=== PATIENT | male | born 1960 | race Two or more races ===

== ENCOUNTER 2025-09-12 19:24 | Emergency (ER) | payer MEDICAID, SELFPAY ==
[2025-09-12 20:02] VITALS: BP 128/87; PULSE 92; RESP 19; TEMP 36.4; O2SAT 99
[2025-09-12 20:03] VITALS: BMI 39.4
--- NOTE | 2025-09-12 20:15 | PD.EDNV ---
Nausea/Vomit./Diarrhea-RME/HPI General Chief complaint: Nausea/Vomiting/Diarrhea Stated complaint: VOMITING Time Seen by Provider: 09/12/25 20:05 Arrival date/time: 09/12/25 19:24 65-year-old male patient with significant history of chronic schizophrenia, diabetes mellitus, was brought in by family for evaluation regarding nausea and vomiting and diarrhea has been ongoing for the last 2 days, patient cannot take anything down due to vomiting. Vomiting and diarrhea are nonbloody. Patient also is complaining of abdominal cramping. No fever no other complaints noted. Other sibling and the family are sick with vomiting. Related Data Home Medications ?Medication ?Instructions ?Recorded ?Confirmed albuterol sulfate 90 mcg/actuation 2 inh inhalation Q4H PRN Dyspnea 04/29/21 07/28/22 aerosol inhaler aripiprazole 30 mg tablet 30 mg PO QDAY 04/29/21 07/24/22 citalopram 40 mg tablet 40 mg PO QDAY 04/29/21 07/24/22 diclofenac sodium 1 % topical gel 1 g topical QID PRN Pain 04/29/21 07/28/22 fluticasone furoate 100 1 inh inhalation QDAY PRN 04/29/21 07/28/22 mcg/actuation blister powder for Shortness Of Breath Or Wheezing inhalation (Arnuity Ellipta) hydrocodone 10 mg-acetaminophen 1 tab PO Q8HR PRN Pain 04/29/21 07/28/22 325 mg tablet omeprazole 20 mg capsule,delayed 20 mg PO BID 04/29/21 07/28/22 release topiramate 50 mg tablet 50 mg PO BID 04/29/21 07/24/22 mupirocin calcium 2 % topical cream 1 applic topical PRN PRN Rash 07/25/22 07/28/22 triamcinolone acetonide 0.1 % 1 applic topical PRN PRN Rash 07/25/22 07/28/22 lotion Previous Rx's ?Medication ?Instructions ?Recorded blood sugar diagnostic (True #100 ea 07/29/22 Metrix Glucose Test Strip) flash glucose scanning reader #1 ea 07/29/22 (FreeStyle Dami[address]) flash glucose sensor (FreeStyle #1 ea 07/29/22 Damián 2 Sensor kit) glucagon 1 mg solution for 1 mg subcut Q20M PRN hypoglycemia 07/29/22 injection (Glucagon Emergency Kit) #1 ea lancets 28 gauge (TRUEplus Lancets) #100 ea 07/29/22 metformin 500 mg tablet 500 mg PO BIDWMEAL 1 month #60 tabs 07/29/22 pen needle, diabetic 29 gauge #100 ea 07/29/22 atorvastatin 80 mg tablet (Lipitor) 80 mg PO HS 30 days #30 tabs 07/30/22 blood-glucose meter (True Metrix #1 ea 08/07/22 Glucose Meter kit) flash glucose sensor (FreeStyle #1 ea 08/07/22 Damián 2 Sensor kit) famotidine 40 mg tablet (Pepcid) 40 mg PO BID #20 tabs 09/12/25 ondansetron HCl 4 mg tablet 4 mg PO Q8H PRN nausea and 09/12/25 vomiting 5 days #20 tabs Allergies Allergy/AdvReac Type Severity Reaction Status Date / Time No Known Allergies Allergy Verified 09/12/25 19:24 Review of Systems Review of Systems Narrative Review of Systems: Review of system reviewed and within normal limits except mentioned in HPI ED Exam Narrative Physical exam: VITAL SIGNS: Reviewed. GENERAL APPEARANCE: Alert and interactive, follows commands, no acute distress, HEAD AND FACE: Non-traumatic. ENT: PERRL, pink conjunctivitis, eyelid no trauma, Mucous membrane dry NECK: Supple, nontender, no nuchal rigidity. CHEST: No tenderness, no crepitus, no paradoxical movement, no retractions. LUNGS: Clear, well ventilated, symmetric, no rales, no wheezing, no ronchi, no stridor, good breath sounds bilaterally. HEART: Regular rate, regular rhythm, no murmur, no gallops. ABDOMEN: Soft, positive bowel sounds, nondistended, no guarding, nontender, no rebound, no masses, RECTAL: Deferred. GENITAL: Deferred. NEUROLOGICAL: Gross motor function intact sensory function intact, Appropriate for age. MUSCULOSKELETAL: low back nontender, full range of motion. EXTREMITIES: Nontender, full range of motion. SKIN: Color pink, dry, no rash, no lacerations, no abrasions, no contusions. LYMPHATICS: Deferred. Course Quality Measures none Orders Category Date Time Status Acetone [Beta Hydroxybutyrate] Stat Lab 09/12/25 20:26 Completed CBC [CBC] Stat Lab 09/12/25 20:26 Completed CMP [Comprehensive Metabolic Panel] Stat Lab 09/12/25 20:26 Completed Lactate (Lactic Acid) Stat Lab 09/12/25 20:26 Results Magnesium Stat Lab 09/12/25 20:26 Completed UA, C/S IF [Urinalysis, C/S if Indicated] Stat Lab 09/12/25 21:05 Completed VBG [Venous Blood Gas] Stat Lab 09/12/25 20:26 Completed Famotidine Inj [Pepcid Inj] Med 09/12/25 20:13 Discontinued 20 mg IVP X1 ONE Ondansetron Inj [Zofran Inj] Med 09/12/25 20:13 Discontinued 4 mg IVP X1 ONE Ringers Lactated 1000 ml [Lactated Ringers] 1,000 ml Med 09/12/25 20:14 Discontinued IV 999 mls/hr Vital Signs Vital signs: Vital Signs Temperature 97.6 F 09/12/25 20:02 Pulse Rate 92 09/12/25 20:02 Respiratory Rate 19 09/12/25 20:02 Blood Pressure 128/87 H 09/12/25 20:02 Pulse Oximetry (%) 99 09/12/25 20:02 Oxygen Delivery Method Room Air 09/12/25 20:02 Nausea/Vomiting/Diarrhea MDM Narrative MDM Narrative:: 65-year-old male patient with significant history of chronic schizophrenia, diabetes mellitus, was brought in by family for evaluation regarding nausea and vomiting and diarrhea has been ongoing for the last 2 days, patient cannot take anything down due to vomiting. Vomiting and diarrhea are nonbloody. Patient also is complaining of abdominal cramping. No fever no other complaints noted. Other sibling and the family are sick with vomiting. Patient's workup CBC did not show any leukocytosis. No anemia noted blood sugar of 207, lactic acid 2.5. Patient received 1 L of IV fluids. Was also given Pepcid IV, IV LR, Zofran, with no recurrence of vomiting. Patient is tolerating p.o. fluids. Patient is stable for charged home Patient data External records reviewed:: None Clinical information provided by:: patient and family Social determinants that could affect healthcare access:: none Patient has the following chronic illnesses:: Chronic schizophrenia hypertension How is presenting disease/condition affected by chronic disease/condition?: exacerbated by Evaluation data The following diagnostics were reviewed and interpreted by me:: lab results and radiology exam(s) Lab and/or radiology exams considered but not ordered:: None Interpretation Summary: See above Medications / Prescriptions Medications / Prescriptions considered but not ordered:: None Medication administrations:: Medication Administration History Discontinued Medications Famotidine (Famotidine Inj 10 Mg/Ml Vial 2 Ml) 20 mg IVP X1 ONE Stop: 09/12/25 20:14 Last Admin: 09/12/25 20:35 Dose: 20 mg Documented By: MONO Lactated Ringer's (Lactated Ringers) 1,000 mls @ 999 mls/hr IV .Q1H1M ONE Stop: 09/12/25 21:14 Last Infusion: 09/12/25 23:06 Dose: Infused Documented By: Admin: 09/12/25 20:34 Dose: 999 mls/hr Documented By: MONO Ondansetron HCl (Ondansetron Inj 2 Mg/Ml Inj 2 Ml) 4 mg IVP X1 ONE; Protocol Stop: 09/12/25 20:14 Last Admin: 09/12/25 20:35 Dose: 4 mg Documented By: MONO Pepcid, IV fluids Zofran Consultations Consultation(s) initiated? (list below): No Diagnosis Nausea Differential Diagnosis: traveler's diarrhea, food poisoning, gastroenteritis and dehydration Most likely diagnosis given after review of the tests above:: Gastroenteritis, dehydration Admission Indicated Admission indicated?: not indicated Admission Request Was there a request for admission?: No Disposition Plan Disposition Plan: Discharge Discharge Attestation Discharge Attestation: The patient and all family members were given an opportunity to ask questions and understood the discharge instructions. Discharge instructions specifically effects, indications for sooner follow up or return to the emergency department, and the expected course of current diagnosis. Patient condition: Stable Discharge Plan Plan Patient Disposition: HOME (Self Care) Discharge Disposition comment: Stable Prescriptions/Referrals Prescriptions/Med Rec: New ondansetron HCl 4 mg tablet 4 mg PO Q8H PRN (Reason: nausea and vomiting) 5 Days Qty: 20 0RF famotidine [Pepcid] 40 mg tablet 40 mg PO BID Qty: 20 0RF No Action citalopram 40 mg tablet 40 mg PO QDAY Patient Comments: take 1 tablet by mouth once daily hydrocodone-acetaminophen 10-325 mg tablet 1 tab PO Q8HR PRN (Reason: Pain) Patient Comments: take 1 tablet by mouth every 6 to 8 hours if needed ; NO DRIVING ... (REFER TO PRESCRIPTION NOTES). omeprazole 20 mg capsule,delayed release(DR/EC) 20 mg PO BID Patient Comments: take 1 capsule by mouth twice a day albuterol sulfate 90 mcg/actuation HFA aerosol inhaler 2 inh INHALATION Q4H PRN (Reason: Dyspnea) Patient Comments: inhale 1 to 2 puffs by mouth every 4 hours if needed aripiprazole 30 mg tablet 30 mg PO QDAY Patient Comments: take 1 tablet by mouth once daily topiramate 50 mg tablet 50 mg PO BID Patient Comments: take 1 capsule by mouth twice a day diclofenac sodium 1 % gel 1 g TOPICAL QID PRN (Reason: Pain) Patient Comments: apply 2 grams to affected area three times a day if needed Arnuity Ellipta 100 mcg/actuation blister with device 1 inh INHALATION QDAY PRN (Reason: Shortness Of Breath Or Wheezing) Patient Comments: inhale 1 puff by mouth and INTO THE LUNGS once daily mupirocin calcium 2 % cream 1 applic TOPICAL PRN PRN (Reason: Rash) triamcinolone acetonide 0.1 % lotion 1 applic TOPICAL PRN PRN (Reason: Rash) (DME) pen needle, diabetic 29 gauge needle See Rx Instructions .Route Qty: 100 0RF Rx Instructions: As directed (DME) True Metrix Glucose Test Strip Strip See Rx Instructions .Route Qty: 100 0RF Rx Instructions: As directed (DME) lancets [TRUEplus Lancets] 28 gauge misc See Rx Instructions .Route Qty: 100 0RF Rx Instructions: As directed (DME) FreeStyle [address] Misc See Rx Instructions .Route Qty: 1 0RF Rx Instructions: As directed (DME) FreeStyle Damián 2 Sensor Kit See Rx Instructions .Route Qty: 1 6RF Rx Instructions: As directed Glucagon Emergency Kit (human) 1 mg recon soln 1 mg subcut Q20M PRN (Reason: hypoglycemia) Qty: 1 0RF Rx Instructions: until target blood sugar attained metformin 500 mg tablet 500 mg PO BIDWMEAL 30 Days Qty: 60 2RF atorvastatin [Lipitor] 80 mg tablet 80 mg PO HS 30 Days Qty: 30 2RF (DME) blood-glucose meter [True Metrix Glucose Meter] Kit See Rx Instructions .Route Qty: 1 0RF Rx Instructions: As directed (DME) FreeStyle Damián 2 Sensor Kit See Rx Instructions .Route Qty: 1 3RF Rx Instructions: As directed Referrals: No Primary/Family,Physician [Primary Care Provider] - In 1 week Problem List Clinical Impression: Gastroenteritis, Dehydration Patient/Caregiver Discharge Instructions Discharge Activity: activity as tolerated Education Materials: Dehydration Additional Instructions: Thank you for the opportunity for serving you today. You are stable for discharged . You are advised to: Follow-up with your PCP in 1 to 2 days Return to ED for worsening of symptoms Increase oral fluids Take medication as prescribed Print Language: American Stand Alone Forms: [place] Award Info., Patient Portal Info Letter PA/DENTAL CERAMIST HELPER Supervising Physician PA/DENTAL CERAMIST HELPER Supervising Physician: mD Jaqueline
[2025-09-12] MEDS: RINGERS LACTATED 1000 ML 1,000 ML 999 ML IV (20:34)
[2025-09-12] MEDS: ONDANSETRON INJ 2 MG/ML INJ 2 ML 4 MG IVP (20:35)
[2025-09-12] MEDS: FAMOTIDINE INJ 10 MG/ML VIAL 2 ML 20 MG IVP (20:35)
[2025-09-12 20:44] LABS: Lactate (Lactic Acid) 2.5 mMol/L (0.4-2.0)
[2025-09-12 20:45] LABS: Base Excess, Venous -2 (-3-3); O2 Saturation, Venous 62 % (96-97); PCO2, Venous 42 mmHg (36-56); PO2, Venous 33 mmHg (15-58); pH, Venous 7.35 (7.33-7.66)
[2025-09-12 20:51] LABS: Beta Hydroxybutyrate 0.5 mmol/L (<0.6)
[2025-09-12 20:55] LABS: Basophils # (Auto) 0.0 Thou/mm3 (0.0-0.2); Basophils % (Auto) 0 % (0-2.5); Eosinophils # (Auto) 0.0 Thou/mm3 (0.0-0.5); Eosinophils % (Auto) 0 % (0-10); Hematocrit 45.7 % (41.0-53.0); Hemoglobin 14.0 g/dL (13.5-16.0); Immature Granulocytes Auto 0.04 Thou/mm3 (0.00-0.00); Lymphocytes # (Auto) 1.1 Thou/mm3 (1.0-4.8); Lymphocytes % (Auto) 13 % (10-50); Mean Corpuscular HGB Conc 30.6 g/dl (31.0-37.0); Mean Corpuscular Hemoglobin 24.5 pg (25.0-35.0); Mean Corpuscular Volume 80 fL (80-100); Monocytes # (Auto) 0.7 Thou/mm3 (0.0-0.8); Monocytes % (Auto) 9 % (0-12); Neutrophils # (Auto) 6.5 Thou/mm3 (1.8-7.7); Neutrophils % (Auto) 77 % (37-80); Nucleated Red Blood Cell # 0.00 Thou/mm3 (0.00-0.00); Nucleated Red Blood Cell % 0 /100 WBC (0); Platelet Count 367 Thou/mm3 (140-440); RDW Standard Deviation 44.4 fL (35.1-43.9); Red Blood Count 5.71 Miln/mm3 (4.50-5.90); White Blood Count 8.4 Thou/mm3 (3.8-10.6)
[2025-09-12 21:23] LABS: Alanine Aminotransferase 22 U/L (10-49); Albumin, Serum 4.7 gm/dL (3.4-4.8); Albumin/Globulin Ratio 1.3 (1.2-2.2); Alkaline Phosphatase 120 U/L (46-116); Anion Gap 14 (7-16); Aspartate Amino Transferase 32 U/L (0-34); BUN/Creatinine Ratio 18 Ratio (12-20); Bilirubin,Total 1.1 mg/dL (0.3-1.2); Blood Urea Nitrogen 18 mg/dL (9-23); Calcium 8.8 mg/dL (8.3-10.6); Calcium (Corrected) 8.8 mg/dL (8.5-10.1); Carbon Dioxide 23.8 mMol/L (20.0-31.0); Chloride 100 mMol/L (98-107); Creatinine (Component) 1.0 mg/dL (0.6-1.3); Estimated Creatinine Clearance 82.1 mL/min (>60); Globulin 3.6 gm/dL (2.3-3.5); Glucose 207 mg/dL (74-106); Magnesium 2.3 mg/dL (1.6-2.6); Osmolality,Calculated 283 (275-295); Potassium 3.6 mMol/L (3.4-5.1); Sodium 138 mMol/L (136-145); Total Protein 8.3 gm/dL (5.7-8.2); eGFR > 60 See Note
[2025-09-12 21:40] LABS: Collection Type, Urine Clean Catch
[2025-09-12 21:48] LABS: Bacteria,Urine Rare; Bilirubin,Urine Negative (Negative); Blood,Urine Trace (Negative); Clarity,Urine Clear (Clear/Hazy); Color,Urine Yellow (Lt Yel-Yel); Culture Indicated,Urine Not Indicated; Glucose, Urine 4+ (Negative); Ketones,Urine 2+ (Negative); Leukocyte Esterase,Urine Negative (Negative); Nitrite,Urine Negative (Negative); PH,Urine 6.0 (5.0-7.0); Protein,Urine 2+ (Neg - Trace); RBC,Urine 12 /hpf (0-3); Specific Gravity,Urine 1.045 (1.001-1.035); Squamous Epithelial Cell,Urine 2 /hpf (0-5); Urobilinogen,Urine Negative mg/dL (0.0-1.0); WBC,Urine 6 /hpf (0-5)
[2025-09-12 22:22] VITALS: BP 131/76; PULSE 63; RESP 20; TEMP 36.4; O2SAT 100
[2025-09-12 23:18] VITALS: BP 131/76; PULSE 73; RESP 18; O2SAT 98
[2025-09-12 23:37] LABS: Reflex Lactate? Y
== END 2025-09-12 23:19 | disposition home or self-care (01) ==
PROVIDERS: Nurse Practitioner Family; Emergency Provider Emergency Medicine
DX: K52.9 Noninfective gastroenteritis and colitis, unspecified (principal); E86.0 Dehydration
CPT/HCPCS: 36415; 80053; 81001; 82010; 82803; 83605; 83735; 85025; 96361; 96374; 96375; 99283; J2405; J3490; J7120